=== PATIENT | male | born 1945 | race American Indian/Alaskan Native ===

== ENCOUNTER 2018-04-09 07:34 | Day surgery (SDC) | payer MEDICARE ==
[2018-04-09] MEDS ORDERED: ANCEF/STERILE WATER 2 GM/20 ML IV NR (09:00)
[2018-04-09] MEDS ORDERED: DILAUDID IV PRN (09:40)
[2018-04-09] MEDS ORDERED: ZOFRAN IV PRN (09:40)
--- NOTE | 2018-04-09 09:40 | Anesthesia Day of Surgery ---
Anesthesia Day of Surgery - Day of Surgery Patient Examined: Yes Patient H&P Reviewed: Yes Patient is NPO: Yes
--- NOTE | 2018-04-09 09:41 | Anesthesia Consultation ---
Anesthesia Consult and Med Hx Date of service: 04/09/18 - Airway Anesthetic Teeth Evaluation: Edentulous ROM Head & Neck: Adequate Mental/Hyoid Distance: Adequate Mallampati Class: Class II Intubation Access Assessment: Probably Good - Pulmonary Exam CTA: Yes - Cardiac Exam Cardiac Exam: RRR - Pre-Operative Health Status ASA Pre-Surgery Classification: ASA3 Proposed Anesthetic Plan: General (GA with LMA ok]) - Pulmonary Hx Smoking: No Hx Asthma: No COPD: No Hx Pneumonia: No Hx Sleep Apnea: No - Cardiovascular System Hx Hypertension: Yes (OVER 10 YEARS) Hx Coronary Artery Disease: No Hx Heart Attack/AMI: No Hx Angina: No Hx Percutaneous Transluminal Coronary Angioplasty (PTCA): No Hx Pacemaker: No Hx Internal Defibrillator: No Hx Valvular Heart Disease: No Hx Heart Murmur: No Hx Peripheral Vascular Disease: No - Central Nervous System Hx Seizures: No CVA: No Hx Psychiatric Problems: No - Gastrointestinal Hx Ulcer: No - Endocrine Hx Renal Disease: No Hx End Stage Renal Disease: No Hx Cirrhosis: No Hx Liver Disease: No Hx Hypothyroidism: No Hx Hyperthyroidism: No - Hematic Hx Anemia: No Hx Sickle Cell Disease: No - Other Systems Hx Alcohol Use: No Hx Substance Use: No Hx Cancer: No
[2018-04-09] MEDS ORDERED: DIPRIVAN 10 MG/ML IV ONE ×2 (09:51→10:18)
[2018-04-09] MEDS ORDERED: XYLOCAINE MPF 2% ONE (09:52)
[2018-04-09] MEDS ORDERED: DILAUDID ONE (09:53)
[2018-04-09] MEDS ORDERED: VERSED ONE (09:53)
[2018-04-09] MEDS ORDERED: LACTATED RINGERS 1,000 ML IV SCH ×2 (10:00)
[2018-04-09] MEDS ORDERED: MARCAINE-EPI/PF 0.25%-1:200,000 INFILTRATI ONE (10:01)
[2018-04-09] MEDS ORDERED: XYLOCAINE 1% 20 mL ONE (10:01)
[2018-04-09] MEDS ORDERED: MARCAINE 0.5% INFILTRATI ONE (10:17)
[2018-04-09] MEDS ORDERED: NACL 0.9% IR ONE (10:17)
[2018-04-09] MEDS ORDERED: XYLOCAINE 1%/ EPI 1:100,000 INFILTRATI ONE (10:17)
--- NOTE | 2018-04-09 10:38 | Short Stay Summary ---
Short Stay Documentation Date of service: 04/09/18 - History Principal diagnosis: Chest wall mass H&P: obtained from office - Allergies and Medications Current Medications: Allergies No Known Allergies Allergy (Verified 04/07/18 10:57) Home Medications Medication Instructions Recorded Confirmed Last Taken Type RX: Metformin HCl [metFORMIN ER] 500 mg PO BID 09/01/14 04/09/18 04/08/18 19:00 History RX: Amlodipine Besylate/Benazepril 1 cap PO DAILY #30 capsule 09/02/14 04/09/18 04/08/18 07:00 Rx [amLODIPine-Benazepril 10/20 mg] RX: Atenolol 100 mg PO QDAY #30 tablet 09/02/14 04/09/18 04/08/18 07:00 Rx RX: Lisinopril 40 mg PO BID #60 tablet 09/02/14 04/09/18 04/09/18 06:00 Rx AtorvaSTATin [Lipitor] 20 mg PO QHS 04/07/18 04/09/18 04/08/18 19:00 History Dapagliflozin Propanediol (Nf) 5 mg PO DAILY 04/07/18 04/09/18 04/08/18 07:00 History [Farxiga (Nf)] Active Medications Cefazolin Sodium (Ancef/Sterile Water 2 Gm/20 Ml) 2 gm IV PREOP NR Stop: 04/09/18 13:00 Hydromorphone HCl (Dilaudid) 0.5 mg IV Q10MIN PRN PRN Reason: Pain , Severe (7-10) Stop: 04/09/18 16:00 Lactated Ringer's (Lactated Ringers) 1,000 mls @ 100 mls/hr IV DIRECT SERA Last Admin: 04/09/18 09:51 Dose: 100 mls/hr Ondansetron HCl (Zofran) 4 mg IV ONCE PRN PRN Reason: Nausea And Vomiting Stop: 04/09/18 23:59 - Physical exam General appearance: no acute distress Integumentary: other (chest mass unchanged from office) HEENT: PERRLA Lungs: Normal air movement Neurological: Normal speech - Brief post op/procedure progress note Date of procedure: 04/09/18 (Dictation:[id number]) Pre-op diagnosis: Chest wall mass Post-op diagnosis: same Procedure: Excision of chest wall mass Anesthesia: MAC Findings: 3cm mass with cystic contents Surgeon: AGUS VEGA Estimated blood loss: minimal Pathology: list (chest wall mas) Specimen disposition: to lab Condition: stable - Disposition Condition at discharge: Stable Disposition: DC- TO HOME OR SELFCARE - Discharge Diagnoses (1) Localized swelling, mass and lump, trunk Status: Acute Short Stay Discharge Plan Diet: regular Wound: keep clean and dry, remove dressing (after 2 days), other (May shower after 2 days. Pat dry wound) Special Instructions: no heavy lifting Additional Instructions: KEEP WOUND CLEAN AND DRY REMOVE DRESSING AFTER 2 DAYS MAY SHOWER AFTER 2 DAYS PAT WOUND DRY NO HEAVY LIFTING CALL DR VEGA OFFICE FOR ALL QUESTIONS AND CONCERNS AND FOR FOLLOW UP APPOINTMENT Follow up with: EDITH CHUA MD [Primary Care Provider] - 7 Days AGUS VEGA MD [Staff Physician] - 7 Days Forms: Outpatient Surgery DC Inst. Prescriptions: HYDROcodone/ACETAMINOPHEN [Sandy 5-325 Tablet] 1 each PO Q6H PRN #30 tablet PRN Reason: Pain , Severe (7-10)
[2018-04-09 11:47] VITALS: BP 140/78
--- NOTE | 2018-04-09 12:07 | Post Anesthesia Evaluation ---
- Post Anesthesia Evaluation Patient Participated: Yes Airway Patent: Yes Stable Respiratory Function: Yes Nausea/Vomiting: No Temp > 96.8F: Yes Pain Manageable: Yes Adequeate Hydration: Yes Anesthesia Complications: No
--- NOTE | 2018-04-09 17:55 | Operative Report ---
PREOPERATIVE DIAGNOSIS: Chest wall mass. POSTOPERATIVE DIAGNOSIS: Chest wall mass. PROCEDURE: 1. Excision of benign trunk lesion that was 3 cm. 2. Intermediate skin repair of trunk that was 12 cm. ATTENDING PHYSICIAN: Diego Henderson MD ANESTHESIA: General. ESTIMATED BLOOD LOSS: None. FLUIDS: 700 mL. FINDINGS: Approximately 3 cm in diameter mass that was in the skin and subcutaneous tissue. There was a small amount of purulent material that did drain from that area. SPECIMEN: 12 x 3.5 cm of skin, depth was 1.5 cm. This was down to the superficial fascia involving the subcutaneous tissue. DRAINS: None. COMPLICATIONS: None. DISPOSITION: Stable, transferred to Recovery Room. INDICATIONS: This is a 72-year-old gentleman who presented to the office with complaints of chronic chest wall mass that periodically causes him discomfort and he would like the mass to be excised. The patient was assessed to be need for outpatient excision in the operating room. Procedure, risks, benefits were explained to the patient. Risks included but were not limited to infection, bleeding, pain, injury to surrounding structures, possible need for further surgery in the future. The patient understood and consented. OPERATIVE NOTE: The patient was brought to the operating room and placed on the table in supine position. After adequate sedation was established, the patient was prepped and draped in usual sterile fashion. Ancef had been administered prior to start of the case. I began by marking out our planned incision site. I went with approximately a 4:1 ratio to determine the length of the overall incision, the mass was about 3 cm; therefore, the total length of the incision was 12 cm with an ellipse around the mass itself. I sharply divided the skin going down to subcutaneous tissue. Please note that prior to incision, I had injected a moderate amount of local underneath the skin and subcutaneous tissue. We used a combination of 0.25% Marcaine and 1% lidocaine with epinephrine. We incised the skin, we the ellipse from the underlying subcutaneous tissue and superficial fascia with electrocautery. Hemostasis was achieved with electrocautery. I then freed up the superior and inferior flaps for closure using a 3-0 Vicryl. I then closed the subcutaneous layer incorporating a portion of the dermis with a running 3-0 Vicryl stitch. We then washed out the wound. Skin was closed with a running 5-0 Prolene stitch using a vertical mattress technique for closure. Skin was clean and dry dressings were placed. The patient tolerated procedure well. There were no complications. All counts were correct at the end of the case. JOB# [id number] ROC/BLOSSOM
== END 2018-04-09 11:20 | disposition home or self-care (01) ==
LOC: OR 07:34
PROVIDERS: ATTEND Surgery
DX: L02.213 Cutaneous abscess of chest wall (principal); L72.8 Other follicular cysts of the skin and subcutaneous tissue; I10 Essential (primary) hypertension; Z79.899 Other long term (current) drug therapy
CPT/HCPCS: 11404; 36415; 82962; 84132; 88305; J0690; J1170; J2250; J2704; J7120; 88307